=== PATIENT | male | born 1980 | race Caucasian/White ===

== ENCOUNTER 2019-12-03 20:03 | Emergency (ER) | payer OTHER ==
[~2019-12-03] VITALS: Ht 152.4 cm; Wt 75.4 kg
--- NOTE | 2019-12-03 20:17 | NUR ---
PT AMBULATED TO ER BED 04
--- NOTE | 2019-12-03 20:18 | NUR ---
39 YO M BIB SELF FOR C/C OF DIZZINESS X2 DAYS WITHOUT N/V. PT DENIES OTC MEDS. PT DENIES FEVER, SOB, TRAVEL, AND FEVER. PT STATES HE HAS HAD AN INTERMITTENT COUGH X2 WEEKS, LUNG SOUNDS CLEAR THROUGHOUT. CHARGE NURSE MADE AWARE OF PT COUGH, PT KEPT IN BED 4. MASK PROVIDED TO PT. NKA NO MED HX NO RX
[2019-12-03 20:24] VITALS: BP 149/79
[2019-12-03] MEDS ORDERED: MECLIZINE 25 MG TAB PO ONE (21:05)
--- NOTE | 2019-12-03 21:11 | NUR ---
EKG PERFORMED AT BEDSIDE. EKG READS SINUS RHYTHM @ 60
[2019-12-03 21:27] LABS: BASOPHILS # (AUTO) 0.1 K/uL (0.00-0.22); BASOPHILS % (AUTO) 1.1 % (0.0-2.0); EOSINOPHILS # (AUTO) 0.2 K/uL (0-0.4); EOSINOPHILS % (AUTO) 2.7 % (0.0-4.0); HEMATOCRIT 44.5 % (36-52); HEMOGLOBIN 15.2 g/dL (12.0-18.0); LYMPHOCYTES # (AUTO) 2.1 K/uL (2.0-11.5); LYMPHOCYTES % (AUTO) 35.1 % (20.5-51.1); MEAN CORPUSCULAR HEMOGLOBIN 32 pg (27-31); MEAN CORPUSCULAR HGB CONC 34 g/dL (33-37); MEAN CORPUSCULAR VOLUME 94.9 fL (80-94); MONOCYTES # (AUTO) 0.5 K/uL (0.8-1.0); MONOCYTES % (AUTO) 8.2 % (1.7-9.3); NEUTROPHILS # (AUTO) 3.2 K/uL (1.8-7.7); NEUTROPHILS % (AUTO) 52.9 % (42.2-75.2); PLATELET COUNT (AUTO) 248 K/uL (140-450); RED BLOOD CELL COUNT(AUTO) 4.69 MIL/uL (4.20-6.10); RED CELL DISTRIBUTION WIDTH 12.3 % (11.6-13.7)
[2019-12-03 21:41] LABS: ALBUMIN 4.2 g/dL (3.4-5.0); ANION GAP 11.7 (8-16); CARBON DIOXIDE 30.5 mmol/L (21-32); CREATININE 1.1 mg/dL (0.6-1.3); POTASSIUM 4.2 mmol/L (3.5-5.1); TOTAL BILIRUBIN 0.4 mg/dL (0.0-1.0)
--- NOTE | 2019-12-03 21:45 | NUR ---
PT STATES HE IS FEELING MUCH BETTER, DIZZINESS HAS IMPROVED
[2019-12-03 22:05] VITALS: BP 131/88
== END 2019-12-03 22:05 | disposition home or self-care (01) ==
LOC: MED 20:03
DX: R42 Dizziness and giddiness (principal)
CPT/HCPCS: 36415; 80053; 84484; 85025; 93005; 99284; J8597

== ENCOUNTER 2021-01-21 01:55 | Emergency (ER) | payer OTHER ==
[~2021-01-21] VITALS: Ht 157.5 cm; Wt 73.5 kg
[2021-01-21 02:04] VITALS: BP 147/98
[2021-01-21] MEDS ORDERED: ONDANSETRON 4 MG/2 ML VIAL IVP ONE (02:45)
[2021-01-21] MEDS ORDERED: NACL 0.9% 1,000 ML IV SCH (02:45)
[2021-01-21] MEDS ORDERED: MORPHINE SULFATE 4 MG/ML SYR IVP ONE (02:45)
[2021-01-21 02:57] LABS: APPEARANCE,URINE CLEAR (CLEAR); BILIRUBIN,URINE NEGATIVE (NEGATIVE); BLOOD, URINE NEGATIVE (NEGATIVE); COLOR,URINE YELLOW (YELLOW); LEUKOCYTE ESTERASE ,URINE NEGATIVE (NEGATIVE); NITRITE, URINE NEGATIVE (NEGATIVE); UGLUCOSE NEGATIVE (NEGATIVE)
[2021-01-21 02:59] LABS: BASOPHILS # (AUTO) 0.1 K/uL (0.00-0.22); BASOPHILS % (AUTO) 0.9 % (0.0-2.0); EOSINOPHILS # (AUTO) 0.2 K/uL (0-0.4); EOSINOPHILS % (AUTO) 1.9 % (0.0-4.0); HEMOGLOBIN 15.1 g/dL (12.0-18.0); LYMPHOCYTES # (AUTO) 2.3 K/uL (2.0-11.5); LYMPHOCYTES % (AUTO) 26.6 % (20.5-51.1); MEAN CORPUSCULAR HEMOGLOBIN 32 pg (27-31); MEAN CORPUSCULAR HGB CONC 34 g/dL (33-37); MEAN CORPUSCULAR VOLUME 93.4 fL (80-94); MONOCYTES # (AUTO) 0.6 K/uL (0.8-1.0); MONOCYTES % (AUTO) 7.3 % (1.7-9.3); NEUTROPHILS # (AUTO) 5.4 K/uL (1.8-7.7); NEUTROPHILS % (AUTO) 63.3 % (42.2-75.2); PLATELET COUNT (AUTO) 289 K/uL (140-450); RED BLOOD CELL COUNT(AUTO) 4.71 MIL/uL (4.20-6.10); RED CELL DISTRIBUTION WIDTH 12.1 % (11.6-13.7); WHITE BLOOD COUNT (AUTO) 8.5 K/uL (4.8-10.8)
[2021-01-21 03:13] LABS: ALBUMIN 4.2 g/dL (3.4-5.0); CARBON DIOXIDE 24.4 mmol/L (21-32); CREATININE 1.1 mg/dL (0.6-1.3); POTASSIUM 3.4 mmol/L (3.5-5.1); TOTAL BILIRUBIN 0.7 mg/dL (0.0-1.0)
[2021-01-21] MEDS ORDERED: ACET-10509 PO (04:22)
[2021-01-21] MEDS ORDERED: ONDA-188 SL (04:22)
[2021-01-21] MEDS ORDERED: AMOX-1000 PO (04:22)
[2021-01-21] MEDS ORDERED: AMOXIL/CLAVULANATE 875/125 MG 1 TAB PO ONE (04:25)
[2021-01-21] MEDS ORDERED: KETOROLAC 30 MG/ML VIAL ONE (04:38)
[2021-01-21] MEDS ORDERED: KETOROLAC 30 MG/ML VIAL IVP ONE (04:40)
== END 2021-01-21 04:48 | disposition home or self-care (01) ==
LOC: MED 01:55
DX: K57.92 Diverticulitis of intestine, part unspecified, without perforation or abscess without bleeding (principal); Z79.899 Other long term (current) drug therapy; Z87.442 Personal history of urinary calculi
CPT/HCPCS: 36415; 74176; 80053; 81003; 82150; 83690; 85025; 96361; 96374; 96375; 99284; J1885; J2270; J2405; 81002; J7030

== ENCOUNTER 2021-06-01 16:22 | Emergency (ER) | payer OTHER ==
[~2021-06-01] VITALS: Ht 157.5 cm; Wt 74.4 kg
[~2021-06-01 16:22] MED LIST: ACET-10509 PO; AMOX-1000 PO; ONDA-188 SL
[2021-06-01 16:23] VITALS: BP 139/86
--- NOTE | 2021-06-01 16:31 | NUR ---
PATIENT AMBULATED TO BED 9.
--- NOTE | 2021-06-01 16:34 | NUR ---
40 Y/O M AMBULATED TO BED 9 WITH STEADY GAIT, C/O LLQ PAIN WITH NAUSEA, HISTORY OF KIDNEY STONES, SURGERY 05/02/21 FOR KIDNEY STONE REMOVAL. NKDA PMH: KIDNEY STONE, HTN
[2021-06-01] MEDS ORDERED: KETOROLAC 60 MG/2 ML VIAL IM ONE (16:45)
[2021-06-01] MEDS ORDERED: ACET-8386 PO (16:55)
[2021-06-01] MEDS ORDERED: IBUP-2213 PO (16:55)
[2021-06-01] MEDS ORDERED: ONDA8TAB87 PO (16:55)
[2021-06-01] MEDS ORDERED: METR-435 PO (16:55)
[2021-06-01] MEDS ORDERED: CIPR500T4 PO (16:55)
[2021-06-01 17:05] VITALS: BP 139/86
--- NOTE | 2021-06-01 17:05 | NUR ---
Patient discharged with v/s stable. Written and verbal after care instructions given and explained. Patient alert, oriented and verbalized understanding of instructions. Ambulatory with steady gait. All questions addressed prior to discharge. ID band removed. Patient advised to follow up with PMD. Rx of NORCO 5-325, IBUPROFEN, METRONIDAZOLE, ZOFRAN, given. Patient educated on indication of medication including possible reaction and side effects. Opportunity to ask questions provided and answered.
== END 2021-06-01 17:05 | disposition home or self-care (01) ==
LOC: MED 16:22
DX: R10.32 Left lower quadrant pain (principal); R11.0 Nausea; Z79.899 Other long term (current) drug therapy; Z79.2 Long term (current) use of antibiotics
CPT/HCPCS: 96372; 99283; J1885

== ENCOUNTER 2021-06-10 05:46 | Day surgery (SDC) | payer OTHER, SELFPAY ==
[~2021-06-10] VITALS: Ht 157.5 cm; Wt 72.6 kg
[~2021-06-10 05:46] MED LIST changes: +ACET-8386 PO; +CIPR500T4 PO; +IBUP-2213 PO; +METR-435 PO; +ONDA8TAB87 PO
[2021-06-10] MEDS ORDERED: LIDOCAINE 2% 100 MG/5 ML UJET TP ONE (07:44)
[2021-06-10] MEDS ORDERED: fentaNYL citrate 0.05 MG/ML VIAL ONE (07:44)
[2021-06-10] MEDS ORDERED: fentaNYL citrate 0.05 MG/ML VIAL IVP ONE (10:00)
== END 2021-06-10 09:35 | disposition home or self-care (01) ==
LOC: MOR 05:46 → MMU 05:47 → MOR 09:35
PROVIDERS: ATTEND Internal Medicine Gastroenterology
DX: K62.5 Hemorrhage of anus and rectum (principal); D12.8 Benign neoplasm of rectum; K57.30 Diverticulosis of large intestine without perforation or abscess without bleeding; K62.9 Disease of anus and rectum, unspecified; K75.81 Nonalcoholic steatohepatitis (NASH); E11.9 Type 2 diabetes mellitus without complications; Z79.84 Long term (current) use of oral hypoglycemic drugs; Z79.899 Other long term (current) drug therapy; Z20.822 Contact with and (suspected) exposure to COVID-19
CPT/HCPCS: 45385; 87426; J3010